=== PATIENT | male | born 1990 | race Caucasian/White ===

== ENCOUNTER 2017-07-13 17:57 | Emergency (ER) | payer MEDICAID ==
[~2017-07-13] VITALS: Ht 172.7 cm; Wt 92.3 kg
[2017-07-13 18:17] VITALS: BP 125/63
== END 2017-07-13 18:45 | disposition home or self-care (01) ==
LOC: EMS 17:58
DX: S16.1XXA Strain of muscle, fascia and tendon at neck level, initial encounter (principal); Z02.89 Encounter for other administrative examinations; X58.XXXA Exposure to other specified factors, initial encounter; Y93.89 Activity, other specified; Y92.89 Other specified places as the place of occurrence of the external cause; Y99.8 Other external cause status
CPT/HCPCS: 99283

== ENCOUNTER 2017-09-27 23:02 | Inpatient (IN) | payer MEDICAID ==
[~2017-09-27] VITALS: Ht 172.7 cm; Wt 90.1 kg
[2017-09-27 23:24] LABS: BASOPHILS # (AUTO) 0.04 K/uL (0.00-0.20); BASOPHILS % (AUTO) 0.7 % (0.0-2.0); EOSINOPHILS % (AUTO) 2.03 % (1.0-6.0); HEMATOCRIT 39.3 % (41-53); HEMOGLOBIN 12.9 g/dL (13.5-17.5); LYMPHOCYTES # (AUTO) 1.8 K/uL (1.0-4.8); LYMPHOCYTES % (AUTO) 36.4 % (22.0-44.0); MEAN CORPUSCULAR HEMOGLOBIN 29.6 pg (26.0-34.0); MEAN CORPUSCULAR HGB CONC 32.9 G/dL (31.0-37.0); MEAN CORPUSCULAR VOLUME 90 fL (80-100); MONOCYTES # (AUTO) 0.5 K/uL (0.1-1.0); NEUTROPHILS # (AUTO) 2.5 K/uL (1.8-7.7); NEUTROPHILS % (AUTO) 50.8 % (40.0-70.0); PLATELET COUNT (AUTO) 183 K/uL (150-450); RED BLOOD CELL COUNT(AUTO) 4.37 MIL/uL (4.50-5.90); RED CELL DISTRIBUTION WIDTH 16.3 % (11.5-14.5)
[2017-09-27] MEDS ORDERED: LORazepam 2 MG TABLET PO PRN (23:30)
[2017-09-27] MEDS ORDERED: ZOLPIDEM TARTRATE 10 MG TABLET PO PRN (23:30)
[2017-09-27] MEDS ORDERED: OLANZapine 5 MG RAPDIS TABLET PO PRN (23:30)
[2017-09-27 23:34] LABS: ANION GAP 15 mmol/L (8-16); CALCIUM, TOTAL 9.6 mg/dL (8.8-10.5); CARBON DIOXIDE 21 mmol/L (22-29); CHLORIDE 102 mmol/L (98-107); CREATININE 1.01 mg/dL (0.60-1.30); GLOMERULAR FILTR. RATE CALC > 60 mL/min (>60); GLUCOSE,RANDOM 95 mg/dL (70-110); POTASSIUM 3.4 mmol/L (3.5-5.1); SODIUM SERUM 138 mmol/L (136-145); UREA NITROGEN, BLOOD 13 mg/dL (7-18)
[2017-09-27 23:40] LABS: ALANINE AMINOTRANSFERASE 102 U/L (12-78); ALBUMIN 4.9 g/dL (3.4-5.0); ALKALINE PHOSPHATASE 88 U/L (46-116); ASPARTATE AMINOTRANSFERASE 45 U/L (15-37); BILIRUBIN,TOTAL 0.7 mg/dL (0.1-1.0); TOTAL PROTEIN, SERUM 8.4 g/dL (6.4-8.2)
[2017-09-27 23:54] LABS: APPEARANCE,URINE CLEAR (CLEAR); BILIRUBIN,URINE NEGATIVE (NEGATIVE); GLUCOSE, URINE (UA) NEGATIVE (NEGATIVE); KETONES,URINE TRACE mg/dL (NEGATIVE); LEUKOCYTE ESTERASE ,URINE NEGATIVE (NEGATIVE); NITRATE,URINE NEGATIVE (NEGATIVE); OCCULT BLOOD,URINE NEGATIVE (NEGATIVE); PH,URINE 6.5 (5.0-8.0); PROTEIN,URINE NEGATIVE (NEGATIVE); UROBILINOGEN,URINE 0.2 mg/dL (<=1.0)
[2017-09-27 23:58] LABS: AMPHET/METH SCREEN,URINE POSITIVE (NEGATIVE); BARBITURATE SCREEN, URINE NEGATIVE (NEGATIVE); BENZODIAZEPINES SCREEN,URINE NEGATIVE (NEGATIVE); CANNABINOID SCREEN,URINE POSITIVE (NEGATIVE); COCAINE SCREEN,URINE NEGATIVE (NEGATIVE); METHADONE SCREEN, URINE NEGATIVE (NEGATIVE); OPIATE SCREEN,URINE NEGATIVE (NEGATIVE)
[2017-09-28] VITALS (8 sets, daily range): BP systolic 124–139; BP diastolic 58–83
[2017-09-28] LABS: CHOL/HDL RATIO 3.4 (4.2-7.3); CHOLESTEROL 255 mg/dL (131-200); HDL CHOLESTEROL 76 mg/dL (40-60); LDL CHOL (CALC.) 161 mg/dL (0-130); THYROID STIMULATING HORMONE 2.39 uIU/mL (0.36-3.74); TRIGLYCERIDES 88 mg/dL (15-150)
[2017-09-28] MEDS ORDERED: PERTUSS(ACELL),DIPH,TET VAC/PF 0.5 ML VIAL IM ONE
[2017-09-28] MEDS ORDERED: BACITRACIN 0.9 GM PACKET OINTMENT TP ONE
[2017-09-28 00:02] LABS: PHENCYCLIDINE SCREEN,URINE NEGATIVE (NEGATIVE)
[2017-09-28] MEDS ORDERED: INFLUENZA VIRUS VACCINE QVS 2017-18 (3YR+)/PF 60 MCG/0.5 ML SYRINGE IM ONE (04:30)
[2017-09-28] MEDS ORDERED: POTASSIUM CHLORIDE 20 MEQ ER TABLET PO ONE (11:00)
[2017-09-28] MEDS ORDERED: MAGNESIUM HYDROXIDE SUSPENSION 30 ML UDCUP PO PRN (11:15)
[2017-09-28] MEDS ORDERED: HydrOXYzine PAMOATE 50 MG CAPSULE PO PRN (11:15)
[2017-09-28] MEDS ORDERED: PROMETHAZINE HCL 25 MG TABLET PO PRN (11:15)
[2017-09-28] MEDS ORDERED: MAG HYDROX/AL HYDROX/SIMETH ES 30 ML SUSPENSION UDCUP PO PRN (11:15)
[2017-09-28] MEDS ORDERED: ACETAMINOPHEN 325 MG TABLET PO PRN (11:15)
[2017-09-28] MEDS ORDERED: TUBERCULIN, PURIFIED PROTEIN DERIVATIVE 5 TU/0.1 ML SYG ID ONE (11:15)
[2017-09-28] MEDS ORDERED: LOPERAMIDE HCL 2 MG CAPSULE PO PRN (11:15)
[2017-09-28] MEDS ORDERED: GuaiFENesin/D-METHORPHAN [SUGAR-FREE] 200-20MG/10 ML SYRUP UDCUP PO PRN (11:15)
[2017-09-28] MEDS ORDERED: GABAPENTIN 300 MG CAPSULE PO PRN (13:45)
[2017-09-28] MEDS: THIAMINE HCL 100 MG TABLET PO SCH (17:00)
[2017-09-28] MEDS ORDERED: OLANZapine 5 MG RAPDIS TABLET PO SCH (21:00)
[2017-09-29] VITALS (8 sets, daily range): BP systolic 110–135; BP diastolic 64–77
[2017-09-29] MEDS: MULTIVITAMINS WITH MINERALS, THERAPEUTIC TABLET PO SCH (08:21)
[2017-09-29] MEDS: FOLIC ACID 1 MG TABLET PO SCH (08:21)
[2017-09-29] MEDS: THIAMINE HCL 100 MG TABLET PO SCH ×2 (08:21→16:19)
[2017-09-29] MEDS: FLUoxetine HCL 20 MG CAPSULE PO SCH (08:25)
[2017-09-29] MEDS: NALTREXONE HCL 50 MG TABLET PO SCH (08:26)
[2017-09-29 09:05] LABS: ALANINE AMINOTRANSFERASE 110 U/L (12-78); ALBUMIN 4.1 g/dL (3.4-5.0); ALKALINE PHOSPHATASE 92 U/L (46-116); ANION GAP 7 mmol/L (8-16); ASPARTATE AMINOTRANSFERASE 47 U/L (15-37); BILIRUBIN,TOTAL 0.6 mg/dL (0.1-1.0); CALCIUM, TOTAL 8.9 mg/dL (8.8-10.5); CARBON DIOXIDE 28 mmol/L (22-29); CHLORIDE 106 mmol/L (98-107); CREATININE 0.96 mg/dL (0.60-1.30); GLOMERULAR FILTR. RATE CALC > 60 mL/min (>60); GLUCOSE,RANDOM 85 mg/dL (70-110); POTASSIUM 4.3 mmol/L (3.5-5.1); SODIUM SERUM 141 mmol/L (136-145); TOTAL PROTEIN, SERUM 7.3 g/dL (6.4-8.2); UREA NITROGEN, BLOOD 14 mg/dL (7-18)
[2017-09-29] MEDS ORDERED: GABA-531 PO (13:36)
[2017-09-29] MEDS ORDERED: FLUO-191 PO (13:36)
[2017-09-29] MEDS ORDERED: NALT50TA PO (13:36)
[2017-09-29] MEDS ORDERED: MENTHOL/CAMPHOR/DIMETH/PHENOL 10 GM OINTMENT TP PRN (21:15)
[2017-09-30 01:15] VITALS: BP 101/62
[2017-09-30] MEDS: THIAMINE HCL 100 MG TABLET PO SCH (08:10)
[2017-09-30] MEDS: MULTIVITAMINS WITH MINERALS, THERAPEUTIC TABLET PO SCH (08:11)
[2017-09-30] MEDS: FOLIC ACID 1 MG TABLET PO SCH (08:11)
[2017-09-30] MEDS: FLUoxetine HCL 20 MG CAPSULE PO SCH (08:14)
[2017-09-30] MEDS: NALTREXONE HCL 50 MG TABLET PO SCH (08:15)
[2017-09-30 09:12] VITALS: BP 112/60
== END 2017-09-30 10:50 | disposition home or self-care (01) | DRG 754 ==
LOC: EMS 23:04 → B2S 09-28 00:11
PROVIDERS: ADMIT Psychiatry & Neurology Psychiatry; ATTEND Psychiatry & Neurology Psychiatry
PROC: 3E0234Z Introduction of Serum, Toxoid and Vaccine into Muscle, Percutaneous Approach (ICD-10-PCS; principal; 2017-09-28)
DX: F32.9 Major depressive disorder, single episode, unspecified (principal); R45.851 Suicidal ideations; S11.91XA Laceration without foreign body of unspecified part of neck, initial encounter; S00.93XA Contusion of unspecified part of head, initial encounter; F15.10 Other stimulant abuse, uncomplicated; D64.9 Anemia, unspecified; F12.10 Cannabis abuse, uncomplicated; E87.6 Hypokalemia; F41.0 Panic disorder [episodic paroxysmal anxiety]; F17.210 Nicotine dependence, cigarettes, uncomplicated; M79.601 Pain in right arm; F10.10 Alcohol abuse, uncomplicated; E78.5 Hyperlipidemia, unspecified; X78.1XXA Intentional self-harm by knife, initial encounter; Z91.19 Patient's noncompliance with other medical treatment and regimen; Y93.89 Activity, other specified; Y92.89 Other specified places as the place of occurrence of the external cause; Y99.8 Other external cause status; Z23 Encounter for immunization
CPT/HCPCS: 80074; 84443; 90471; 90715; 99285; G0480